=== PATIENT | male | born 1940 | race Caucasian/White ===

== ENCOUNTER → 2017-02-07 | Outpatient (CLI) | payer OTHER ==
[~2017-02-07] MED LIST: LIDOCAINE 1%, 20ML ONE
== END ==
LOC: CFH 09:46
PROVIDERS: ATTEND Internal Medicine
DX: N63.13 Unspecified lump in the right breast, lower outer quadrant (principal)
CPT/HCPCS: 19083; 88305; G0206; J3490; 88342; 88360; G0461

== ENCOUNTER → 2017-02-17 | Outpatient (CLI) | payer OTHER | END | disposition home or self-care (01) | LOC: PETCFH 11:03 | PROVIDERS: ATTEND Internal Medicine Pulmonary Disease | DX: J90 Pleural effusion, not elsewhere classified (principal); R91.1 Solitary pulmonary nodule; K40.20 Bilateral inguinal hernia, without obstruction or gangrene, not specified as recurrent; N20.0 Calculus of kidney | CPT/HCPCS: 78815; A9552 ==

== ENCOUNTER → 2017-05-12 | Outpatient (CLI) | payer OTHER | END | disposition home or self-care (01) | LOC: PETCFH 09:42 | PROVIDERS: ATTEND Radiology Radiation Oncology | DX: J90 Pleural effusion, not elsewhere classified (principal); C50.921 Malignant neoplasm of unspecified site of right male breast | CPT/HCPCS: 78815; A9552 ==

== ENCOUNTER 2019-08-23 09:10 | Outpatient (CLI) | payer OTHER | END 2019-08-23 23:59 | disposition home or self-care (01) | LOC: PETCFH 09:10 → MERGE 10:00 → PETCFH 23:59 | PROVIDERS: ATTEND Specialist | DX: C34.92 Malignant neoplasm of unspecified part of left bronchus or lung (principal); J44.9 Chronic obstructive pulmonary disease, unspecified; N20.0 Calculus of kidney; I10 Essential (primary) hypertension; E11.9 Type 2 diabetes mellitus without complications; E78.5 Hyperlipidemia, unspecified; Z72.0 Tobacco use | CPT/HCPCS: 78815; A9552 ==